=== PATIENT | female | born 1970 | race Caucasian/White ===

== ENCOUNTER 2018-12-12 11:38 | Day surgery (SDC) | payer OTHER ==
[~2018-12-12] VITALS: Ht 167.6 cm; Wt 84.9 kg
[2018-12-12] MEDS ORDERED: LACTATED RINGERS 1,000 ML IV SCH (12:06)
[2018-12-12] MEDS ORDERED: MULT-658 PO (12:09)
[2018-12-12] MEDS ORDERED: VITAMIN D PO (12:09)
[2018-12-12] MEDS ORDERED: LACT1CAP35 PO (12:09)
[2018-12-12] MEDS ORDERED: CALCIUM PO (12:09)
[2018-12-12 12:17] LABS: HCG UR SG 1.002 (1.003-1.030)
[2018-12-12 12:19] VITALS: BP 112/80
[2018-12-12] MEDS ORDERED: BUPIVACAINE/PF-EPI 0.5% 1:200K ONE (12:33)
[2018-12-12] MEDS ORDERED: MIDAZOLAM 1 MG/ML, 2ML ONE (12:58)
[2018-12-12] MEDS ORDERED: FENTANYL PF 250 MCG/5ML ONE (12:58)
[2018-12-12] MEDS ORDERED: LIDOCAINE-MPF 2% ,5ML ONE (13:00)
[2018-12-12] MEDS ORDERED: KETOROLAC 30 MG/1 ML ONE (13:07)
[2018-12-12] MEDS ORDERED: ONDANSETRON 2MG/ML, 2ML ONE (13:10)
[2018-12-12] MEDS ORDERED: GLYCOPYRROLATE 0.2MG/1ML, 5ML ONE (13:10)
[2018-12-12] MEDS ORDERED: CEFAZOLIN 1,000 MG ONE (13:10)
[2018-12-12] MEDS ORDERED: ROCURONIUM 10MG/ML,5ML ONE (13:10)
[2018-12-12] MEDS ORDERED: NEOSTIGMINE 1 MG/ML, 10ML ONE (13:10)
[2018-12-12] MEDS ORDERED: DEXAMETHASONE 4 MG/ML, 1ML ONE (13:10)
[2018-12-12] MEDS ORDERED: PROPOFOL 10 MG/ML, 20ML ONE (13:10)
[2018-12-12] MEDS ORDERED: ALBUTEROL/IPRATROPIUM 2.5MG/0.5MG, 3 ML NPPB PRN (13:30)
[2018-12-12] MEDS ORDERED: hydrALAzine 20 MG/ML, 1ML IV PRN (13:30)
[2018-12-12] MEDS ORDERED: OXYcodone 5 MG/5 ML ORAL.SOL UDC PO PRN (13:30)
[2018-12-12] MEDS ORDERED: LABETALOL 5MG/ML, 20ML IV PRN (13:30)
[2018-12-12] MEDS ORDERED: SCOPOLAMINE PATCH, 1.5MG PATCH.TD72 TD PRN (13:30)
[2018-12-12] MEDS ORDERED: ACETAMINOPHEN 325 MG TABLET PO PRN (13:30)
[2018-12-12] MEDS ORDERED: PROMETHAZINE 25 MG/ML, 1ML IV PRN (13:30)
[2018-12-12] MEDS ORDERED: ONDANSETRON 2MG/ML, 2ML IV PRN (13:30)
[2018-12-12] MEDS ORDERED: MEPERIDINE/PF 25MG/0.5ML IVPush PRN (13:30)
[2018-12-12] MEDS ORDERED: MIDAZOLAM 1 MG/ML, 2ML IV PRN (13:30)
[2018-12-12] MEDS ORDERED: FENTANYL PF 100 MCG/2ML ONE (14:00)
[2018-12-12] MEDS ORDERED: OXYcodone 5 MG/5 ML ORAL.SOL UDC ONE (14:00)
[2018-12-12] MEDS: FENTANYL PF 100 MCG/2ML IV PRN ×2 (14:01→14:09)
[2018-12-12] MEDS ORDERED: HYDROmorphone 1 MG/ML, 1ML ONE (14:16)
[2018-12-12] MEDS: HYDROmorphone 2 MG/ML, 1ML IVPush PRN ×2 (14:18→14:34)
== END 2018-12-12 16:22 | disposition home or self-care (01) ==
LOC: OUT 11:38
PROVIDERS: ATTEND Surgery
DX: K80.10 Calculus of gallbladder with chronic cholecystitis without obstruction (principal); Z98.890 Other specified postprocedural states; Z88.1 Allergy status to other antibiotic agents; Z88.0 Allergy status to penicillin; Z88.8 Allergy status to other drugs, medicaments and biological substances
CPT/HCPCS: 47562; 81025; 88304; J0690; J1100; J1170; J1885; J2250; J2405; J2704; J2710; J3010; J3490; J7120